=== PATIENT | female | born 1935 | race Asian ===

== ENCOUNTER 2019-08-15 23:47 | Inpatient (IN) | payer OTHER ==
[~2019-08-15] VITALS: Ht 157.5 cm; Wt 51.7 kg
[2019-08-16] VITALS (9 sets, daily range): BP systolic 112–130; BP diastolic 48–58
[2019-08-16] MEDS ORDERED: MORPHINE SULFATE INJ 2 MG/ML DISP.SYRIN IV PRN (03:30)
[2019-08-16] MEDS ORDERED: Z GUARD REMEDY 2 OZ OINT TP PRN (03:30)
[2019-08-16] MEDS ORDERED: MAG HYDROX/AL HYDROX/SIMETH 30 ML UDC PO PRN (03:30)
[2019-08-16] MEDS ORDERED: ACETAMINOPHEN 325 MG TABLET PO PRN (03:30)
[2019-08-16] MEDS ORDERED: MAGNESIUM HYDROXIDE 30 ML UDC PO PRN (03:30)
[2019-08-16] MEDS ORDERED: ONDANSETRON HCL/PF 4 MG/2 ML VIAL IVP PRN (03:30)
[2019-08-16] MEDS ORDERED: HYDROCODONE/APAP 5/325MG 1 EACH TABLET PO PRN (03:30)
--- NOTE | 2019-08-16 03:40 | NUR ---
RN NOTES RECEIVED PATIENT. DIRECT ADMIT FROM [facility],TRANSPORTED BY [facility]. PATIENT IS URUGUAYAN SPEAKING. ABLE TO MAKE NEEDS KNOWN. ALERT ORIENTED X4. ABLE TO OBTAIN PREVIOUS MEDICAL HISTORY RECORDS FROM [facility] ED SUMMARY REPORT. SON WAS AT BEDSIDE WHEN OBTAINING REPORTS FROM [facility]. PATIENT HAD MECHANICAL GROUND LEVEL FALL WHILE TRYING TO USE A NEW WALKER. PATIENT COMPLAINED OF RIGHT HIP PAIN. MD MADE AWARE. AWAITING FOR ADMITTING ORDERS. NO APPARENT SIGNS OF ACUTE RESPIRATORY DISTRESS NOTED, BREATHING EVEN AND UNLABORED, NOTED WITH SLIGHT FACIAL GRIMACING UPON CHANGING POSITION. PATIENT IS PLEASANT AND COOPERATIVE. HEAD TO TOE ASSESSMENT DONE. NOTED WITH SLIGHT SWELLING ON HER RIGHT CHEEK. IV ACCESS ON HER LEFT FOREARM G#22 CLEAN DRY, INTACT AND PATENT. ALL NEEDS ANTICIPATED. KEPT CLEAN DRY AND COMFORTABLE, ORIENTED TO ROOM AND THE USE OF CALL LIGHT. REPOSITIONED FOR COMFORT. WILL CONTINUE TO MONITOR ACCORDINGLY.
[2019-08-16] MEDS ORDERED: MECL12.582 PO (03:46)
[2019-08-16] MEDS ORDERED: RANI-655 PO (03:46)
[2019-08-16] MEDS ORDERED: INSU100I26 SQ (03:46)
[2019-08-16] MEDS ORDERED: ACET-2605 PO (03:46)
[2019-08-16] MEDS ORDERED: ASPI-1152 PO (03:46)
[2019-08-16] MEDS ORDERED: CALC1TAB91 PO (03:46)
[2019-08-16] MEDS ORDERED: DOCU-141 PO (03:46)
[2019-08-16] MEDS ORDERED: ERGO50CA PO (03:46)
[2019-08-16] MEDS ORDERED: GABA300C PO (03:46)
[2019-08-16] MEDS ORDERED: AMLO5TAB4 PO (03:46)
[2019-08-16] MEDS ORDERED: MECLIZINE HCL 12.5 MG TABLET PO PRN (04:00)
[2019-08-16] MEDS ORDERED: DOCUSATE SODIUM 100 MG CAPSULE PO PRN (04:00)
[2019-08-16] MEDS ORDERED: DEXTROSE 50%-WATER 50 ML DISP.SYRIN IV PRN (04:00)
[2019-08-16] MEDS: IV D5/0.45 NACL 1,000 ML IV PRN ×2 (04:18→21:42)
[2019-08-16 06:29] LABS: BASOPHILS % (AUTO) 0.2 % (0.0-2.0); EOSINOPHILS % (AUTO) 0.1 % (0.0-6.0); HEMATOCRIT 30 % (33-45); LYMPHOCYTES # (AUTO) 1.7 /CMM (0.8-4.8); LYMPHOCYTES % (AUTO) 23.7 % (20.0-44.0); MEAN CORPUSCULAR HGB CONC 34 g/dl (31.0-36.0); MEAN CORPUSCULAR VOLUME 92 fL (82-100); MONOCYTES # (AUTO) 0.6 /CMM (0.1-1.30); MONOCYTES % (AUTO) 8.8 % (2.0-12.0); NEUTROPHILS # (AUTO) 4.8 /CMM (1.8-8.9); NEUTROPHILS % (AUTO) 67.2 % (43.0-81.0); PLATELET COUNT (AUTO) 159 /CMM (150-450); RED BLOOD CELL COUNT(AUTO) 3.24 MIL/uL (4.0-5.2); WHITE BLOOD COUNT (AUTO) 7.1 K/uL (4.3-11.0)
[2019-08-16 06:40] LABS: ALBUMIN 3.2 g/dL (3.4-5.0); BILIRUBIN,DIRECT 0.1 mg/dL (0.0-0.2); BILIRUBIN,TOTAL 0.3 mg/dL (0.2-1.0); CALCIUM, SERUM 8.9 mg/dL (8.5-10.1); CREATININE 1.1 mg/dL (0.6-1.3); MAGNESIUM 1.9 mg/dL (1.8-2.4); PHOSPHORUS 3.2 mg/dL (2.5-4.9); POTASSIUM 4.9 mmol/L (3.5-5.1); TOTAL PROTEIN, SERUM 6.6 g/dL (6.4-8.2)
[2019-08-16] MEDS: BLOOD SUGAR DIAGNOSTIC 1 EACH STRIP IN SCH ×4 (06:51→21:22)
[2019-08-16 06:54] LABS: APPEARANCE,URINE CLEAR (CLEAR); BILIRUBIN,URINE NEGATIVE (NEGATIVE); BLOOD, URINE NEGATIVE Ery/uL (NEGATIVE); COLOR,URINE YELLOW (YELLOW); KETONES,URINE NEGATIVE (NEGATIVE); LEUKOCYTE ESTERASE ,URINE NEGATIVE (NEGATIVE); NITRITE, URINE NEGATIVE (NEGATIVE); PH,URINE 5.5 (5.0-8.0); PROTEIN,URINE NEGATIVE (NEGATIVE); UGLUCOSE >=1000 mg/dL (NEGATIVE); UROBILINOGEN,URINE 0.2 EU/dL (0.2)
[2019-08-16] MEDS: INSULIN REGULAR, HUMAN 100 UNIT/ML 3 ML VIAL SQ PRN ×2 (06:58→21:26)
[2019-08-16 07:24] LABS: THYROID STIMULATING HORMONE 0.883 uIU/mL (0.358-3.74)
--- NOTE | 2019-08-16 07:31 | NUR ---
RN NOTES ALL NEEDS ATTENDED AND MET, ABLE TO REST, SAFETY MEASURES IN PLACE, BLOOD GLUCOSE CHECKED 297 MG/DL. UNITS OF INSULIN GIVEN PER MD ORDERED. CRITICAL LAB GLUCOSE RESULT IS 362MG/DL PER SANDRA. ASPIRATION PRECAUTION EMPHASIZED. NPO MAINTAINED. ENDORSED TO AM NURSE FOR CONTINUITY OF CARE.
[2019-08-16 07:32] LABS: CHOLESTEROL 135 mg/dL (<200); HDL CHOLESTEROL 55 mg/dL (40-60); LDL 67 mg/dL (0-99); TRIGLYCERIDES 64 mg/dL (30-150)
[2019-08-16 08:20] LABS: BACTERIA,URINE None seen /HPF (None Seen); RBC,URINE NONE SEEN /HPF (0-2); SQUAMOUS EPITHELIAL CELL,UR Few /HPF (None Seen); WBC,URINE 0-2 /HPF (0-3)
[2019-08-16] MEDS: GABAPENTIN 300 MG CAPSULE PO SCH ×3 (08:28→17:00)
[2019-08-16] MEDS: LOSARTAN POTASSIUM 50 MG TABLET PO SCH (08:29)
[2019-08-16] MEDS: CALCIUM CARB 600MG /VIT D 1 EACH TABLET PO SCH ×2 (08:29→17:00)
[2019-08-16] MEDS: PANTOPRAZOLE 40 MG TABLET.DR PO SCH (08:29)
[2019-08-16] MEDS: AMLODIPINE BESYLATE 5 MG TABLET PO SCH (08:30)
[2019-08-16] MEDS ORDERED: FAMOTIDINE (20 MG) 20 MG TABLET PO PRN (09:00)
[2019-08-16] MEDS ORDERED: BUPIVACAINE 0.5 % PF 150 MG/30 ML VIAL ONE (16:39)
[2019-08-16] MEDS ORDERED: BACITRACIN 50000 UNITS/VIAL ONE (16:40)
[2019-08-16] MEDS ORDERED: HYDROMORPHONE 1 MG/1 ML DISP.SYRIN ONE (16:47)
[2019-08-16] MEDS ORDERED: FENTANYL PF 100MCG/2ML AMPUL ONE (16:55)
--- NOTE | 2019-08-16 19:00 | NUR ---
RN MS OPENING NOTES RECEIVED PATIENT IN BED AWAKE ALERT AND VERBALLY RESPONSIVE, ALERT X3-4, RESPIRATIONS EVEN AND UNLABORED WITH EQUAL RISE AND FALL OF CHEST, S/P SURGERY TO RIGHT HIP WITH DRESSING CLEAN DRY AND INTACT. IV SITE TO LEFT FA #22 G INTACT AND PATENT, NO REDNESS NO INFILTRATION PRESENT, IVF RUNNING ORDERED, SP02 WNL 94-96%ON ROOM AIR NO DISTRESS PRESENT, VS REMAIN WNL AT THIS TIME, SCOTT CATHETER INTACT AND PROPERLY DRAINING, WITH PROPER ALIGNMENT, SAFETY PRECAUTIONS IN PLACE, LOW BED AND LOCKED BED ALARM IN PLACE , NO FACIAL GRIMACING PRESENT AT THIS TIME , ICE BAG TO RIGHT HIP IN PLACE, ORIENTED TO STAFF AND CALL LIGHT AND KEPT WITHIN REACH, WILL CONTINUE TO MONITOR VS AND ATTEND TO NEEDS, REMAINS COMFORTABLE AT THIS TIME, ORDERS KS MD DR. VALENZUELA NOTED AND CARRIED OUT.
[2019-08-16] MEDS ORDERED: INSULIN GLARGINE, 100 UNIT/ML CARTRIDGE SQ SCH (22:00)
[2019-08-17] VITALS (7 sets, daily range): BP systolic 99–158; BP diastolic 35–57
[2019-08-17] MEDS: ANCEF 1 GM/50 ML D5W IV SCH ×6 (01:01→18:26)
[2019-08-17] MEDS: INSULIN REGULAR, HUMAN 100 UNIT/ML 3 ML VIAL SQ PRN ×4 (06:06→21:22)
[2019-08-17] MEDS: BLOOD SUGAR DIAGNOSTIC 1 EACH STRIP IN SCH ×4 (06:24→21:17)
--- NOTE | 2019-08-17 06:25 | NUR ---
RN MS CLOSING NOTES PATIENT IN BED AWAKE ALERT AND VERBALLY RESPONSIVE, ALERT ABLE TO POINT TO NEEDS, RESPIRATIONS EVEN AND UNLABORED WITH EQUAL RISE AND FALL OF CHEST, S/P SURGERY TO RIGHT HIP WITH DRESSING CLEAN DRY AND INTACT. IV SITE TO LEFT FA #22 G INTACT AND PATENT, NO REDNESS NO INFILTRATION PRESENT, IVF RUNNING ORDERED, VS S/P SURGERY WNL, 94-96%ON ROOM AIR NO DISTRESS PRESENT, SCOTT CATHETER INTACT AND PROPERLY DRAINING 350CC CLEAR YELLOW OUTPUT , WITH PROPER ALIGNMENT, SAFETY PRECAUTIONS IN PLACE, LOW BED AND LOCKED BED ALARM IN PLACE , NO FACIAL GRIMACING PRESENT AT THIS TIME , CALL LIGHT KEPT WITHIN REACH, TOLERATED REPOSITIONING WELL, SKIN ASSESSMENT DONE NO REDNESS TO SACRAL OR HEELS INTACT, CLEAR, OFFERED FLUIDS TOLERATED WELL, TOLERATED SUGAR FREE APPLESAUCE WELL AND WATER PROVIDED, WILL CONTINUE TO ATTEND TO NEEDS, REMAINS COMFORTABLE AT THIS TIME AND ENDORSE TO NEXT SHIFT, MEDICATIONS ORDERED GIVEN WITH NO ADVERSE REACTIONS.
[2019-08-17 07:30] LABS: BASOPHILS % (AUTO) 0.1 % (0.0-2.0); EOSINOPHILS % (AUTO) 0.1 % (0.0-6.0); HEMATOCRIT 23 % (33-45); HEMOGLOBIN 7.7 g/dL (11.5-14.8); LYMPHOCYTES % (AUTO) 20.6 % (20.0-44.0); MEAN CORPUSCULAR HGB CONC 34 g/dl (31.0-36.0); MEAN CORPUSCULAR VOLUME 92 fL (82-100); MONOCYTES # (AUTO) 0.8 /CMM (0.1-1.30); MONOCYTES % (AUTO) 8.3 % (2.0-12.0); NEUTROPHILS # (AUTO) 6.9 /CMM (1.8-8.9); NEUTROPHILS % (AUTO) 70.9 % (43.0-81.0); PLATELET COUNT (AUTO) 134 /CMM (150-450); RED BLOOD CELL COUNT(AUTO) 2.49 MIL/uL (4.0-5.2); WHITE BLOOD COUNT (AUTO) 9.7 K/uL (4.3-11.0)
[2019-08-17 07:41] LABS: CALCIUM, SERUM 7.9 mg/dL (8.5-10.1); CREATININE 0.9 mg/dL (0.6-1.3); MAGNESIUM 1.8 mg/dL (1.8-2.4); PHOSPHORUS 2.1 mg/dL (2.5-4.9); POTASSIUM 4.4 mmol/L (3.5-5.1)
--- NOTE | 2019-08-17 08:00 | NUR ---
RN MS AM NOTES RECEIVED PATIENT IN BED AWAKE ALERT AND VERBALLY RESPONSIVE, ALERT X 2 AND IS HARD OF HEARING EVEN WITH RIGHT HEARING AID IN PLACE, RESPIRATIONS EVEN AND UNLABORED WITH EQUAL RISE AND FALL OF CHEST, S/P SURGERY TO RIGHT HIP INTRAMEDULLARY RODDING ON 08/16/[address] VALENZUELA. DRESSING CLEAN DRY AND INTACT. IV SITE TO LEFT FA #22 G INTACT AND PATENT, NO REDNESS NO INFILTRATION PRESENT, IVF D51/2 NS INFUSING WELL AT 75ML. PATIENT ATTEMPTED TO PULL OUT IV SEVERAL TIMES AND TRIED TO REMOVE THE PROTECTIVE DRESSING COVERING THE IV LINE. CALLED DAUGHTER, SANDI, AND ASKED CONSENT FOR SOFT WRIST RESTRAINTS WHICH DAUGHTER AGREED TO. NOTIFIED MD WITH ORDERS FOR RESTRAINTS AND CARRIED OUT. NO SOB ON ROOM AIR AND NO DISTRESS NOTED. SCOTT CATHETER INTACT AND PROPERLY DRAINING WITH CLEAR/YELLOW URINE WITH MODERATE OUTPUT. SAFETY PRECAUTIONS IN PLACE, LOW BED AND LOCKED BED ALARM IN PLACE , NO FACIAL GRIMACING PRESENT AT THIS TIME, CALL LIGHT AND KEPT WITHIN REACH, WILL CONTINUE TO MONITOR.
[2019-08-17] MEDS: PANTOPRAZOLE 40 MG TABLET.DR PO SCH (08:15)
[2019-08-17] MEDS: CHOLECALCIFEROL 1,000 UNIT TABLET (VIT D3) PO SCH (09:20)
[2019-08-17] MEDS: LOSARTAN POTASSIUM 50 MG TABLET PO SCH (09:21)
[2019-08-17] MEDS: NEUTRA PHOS 1 POWD.PACKET PO SCH ×2 (09:21→17:26)
[2019-08-17] MEDS: GABAPENTIN 300 MG CAPSULE PO SCH ×3 (09:21→17:26)
[2019-08-17] MEDS: CALCIUM CARB 600MG /VIT D 1 EACH TABLET PO SCH ×2 (09:22→17:26)
[2019-08-17] MEDS: AMLODIPINE BESYLATE 5 MG TABLET PO SCH (09:22)
[2019-08-17 09:26] LABS: IRON, SERUM 23 ug/dl (50-175); TOTAL IRON BINDING CAPACITY 195 ug/dl (250-450)
[2019-08-17 09:40] LABS: FERRITIN 150 ng/mL (8-388)
[2019-08-17] MEDS: IV 1/2NS 1000 ML 1,000 ML IV PRN (10:03)
--- NOTE | 2019-08-17 15:30 | NUR ---
TRANSFUSED FIRST UNIT PRBC WITH STABLE V/S.BP 119/40 HR 90 RR 20 T 99.PT SLEEPING COMFORTABLY BUT AROUSABLE.DENIES ANY PAIN OR DISTRESS.WILL MONITOR V/S AND ADVERSE REACTIONS FROM THE BLOOD.
--- NOTE | 2019-08-17 15:45 | NUR ---
With ongoing blood transfusion of first unit PRBC with no adverse reactions noted.With stable V/S. BP 99/35 HR 88 rr 18 T 99.PA 0/10.Pt continues to rest comfortably denying any pain or distress.Will continue to monitor. Call light placed within reach.
--- NOTE | 2019-08-17 16:25 | NUR ---
MS RN NOTES UNABLE TO ADMINISTERED SCHEDULED ANCEF DUE TO ONGOING BLOOD TRANSFUSION.
--- NOTE | 2019-08-17 18:21 | NUR ---
COMPLETED TRANSFUSING FIRST UNIT PRBC WITH NO ADVERSE REACTIONS NOTED.WITH STABLE V/S.PT REFUSED TO DRINK FLUIDS AND EAT DINNER .ATE MIR CRACKERS INSTEAD.
--- NOTE | 2019-08-17 19:00 | NUR ---
RN brady opening notes Received Pt from morning nurse. Pt is resting in bed comfortably. Pt is alert and orientedX2. Pt speaks Mandarin and able to make needs known. Respiration is normal. No SOB. No nausea or vomiting. Pt denies any pain or discomfort at this time. Per AM nurse Pt had 1 unit of PRBC. Bilateral soft wrist restraint is in placed and removed to check for circulation. Skin is warm to touch. Offred oral fluids. Pt tolerated well. Turning and repositioning Q 2hr. Lopez cath is intact, patent and draining clear yellow urine. IV sites at LFA # 22 is clean, intact and patent and infusing well 0.45 NS @ 75 ml/hr. Safety precautions is maintained. Instructed to call. Bed at low position, brakes locked, side rails upX3 and call light is within reach. Will continue to monitor.
--- NOTE | 2019-08-17 19:00 | NUR ---
MS RN NOTES: PATIENT RESTING IN BED; SOFT WRIST RESTRAINTS ON BOTH HANDS IN PLACE; ATTEMPTING TO REMOVE IV LINE WHEN RESTRAINTS ARE RELEASED TO CHECK CIRCULATION IN BOTH HANDS; BED SET IN LOW POSITION AND BED ALARM IS ON; CALL LIGHT WITHIN REACH.
[2019-08-17] MEDS ORDERED: INSULIN GLARGINE, 100 UNIT/ML CARTRIDGE SQ SCH (22:00)
[2019-08-18] MEDS: IV 1/2NS 1000 ML 1,000 ML IV PRN (03:02)
[2019-08-18 06:23] LABS: BASOPHILS % (AUTO) 0.2 % (0.0-2.0); EOSINOPHILS % (AUTO) 0.2 % (0.0-6.0); HEMATOCRIT 26 % (33-45); LYMPHOCYTES # (AUTO) 2.5 /CMM (0.8-4.8); LYMPHOCYTES % (AUTO) 20.6 % (20.0-44.0); MEAN CORPUSCULAR HGB CONC 34 g/dl (31.0-36.0); MEAN CORPUSCULAR VOLUME 89 fL (82-100); MONOCYTES # (AUTO) 1.3 /CMM (0.1-1.30); MONOCYTES % (AUTO) 10.3 % (2.0-12.0); NEUTROPHILS # (AUTO) 8.4 /CMM (1.8-8.9); NEUTROPHILS % (AUTO) 68.7 % (43.0-81.0); PLATELET COUNT (AUTO) 121 /CMM (150-450); RED BLOOD CELL COUNT(AUTO) 2.95 MIL/uL (4.0-5.2); WHITE BLOOD COUNT (AUTO) 12.3 K/uL (4.3-11.0)
[2019-08-18] MEDS: BLOOD SUGAR DIAGNOSTIC 1 EACH STRIP IN SCH ×3 (06:32→16:58)
[2019-08-18] MEDS: INSULIN REGULAR, HUMAN 100 UNIT/ML 3 ML VIAL SQ PRN ×2 (06:35→13:22)
[2019-08-18 06:39] LABS: ALBUMIN 2.5 g/dL (3.4-5.0); BILIRUBIN,TOTAL 0.8 mg/dL (0.2-1.0); CALCIUM, SERUM 7.8 mg/dL (8.5-10.1); CREATININE 0.7 mg/dL (0.6-1.3); MAGNESIUM 1.8 mg/dL (1.8-2.4); PHOSPHORUS 1.8 mg/dL (2.5-4.9); POTASSIUM 3.6 mmol/L (3.5-5.1); TOTAL PROTEIN, SERUM 5.9 g/dL (6.4-8.2)
--- NOTE | 2019-08-18 06:45 | NUR ---
RN medsurg closing notes Pt is resting in bed comfortably. Pt speaks Mandarin but able to make needs known. Respiration is normal. NO SOB. No nausea or vomiting. No S/S of distress noted. IV sites at L hand # 22 is clean, intact, patent and infusing well 0.45%NS @ 75 ml/hr. VS is stable. Routine meds were given as ordered. Lopez cath is intact, patent and draining clear yellow urine 500 ml. Bilateral wrist restraints is in placed. Release to checked circulation. Pt skin is warm to touch. Offered fuids and snacks. Kept Pt clean, dry and comfortable. All needs met and attended. Instructed to call. Safety precautions is maintained. Bed at low position, brakes locked, side rails upX3 and call light is within reach. Will endorse to morning nurse for KISHAN
--- NOTE | 2019-08-18 08:00 | NUR ---
RN MS AM NOTES RECEIVED PATIENT IN BED AWAKE ALERT AND VERBALLY RESPONSIVE, ALERT X 2 AND IS HARD OF HEARING EVEN WITH RIGHT HEARING AID IN PLACE, RESPIRATIONS EVEN AND UNLABORED WITH EQUAL RISE AND FALL OF CHEST, S/P SURGERY TO RIGHT HIP INTRAMEDULLARY RODDING ON 08/16/[address] VALENZUELA. DRESSING CLEAN DRY AND INTACT. IV SITE TO LEFT FA #22 G INTACT AND PATENT, NO REDNESS NO INFILTRATION PRESENT, IVF D51/2 NS INFUSING WELL AT 75ML.NO SOB ON ROOM AIR AND NO DISTRESS NOTED. SCOTT CATHETER INTACT AND PROPERLY DRAINING WITH CLEAR/YELLOW URINE WITH MODERATE OUTPUT. SAFETY PRECAUTIONS IN PLACE, LOW BED AND LOCKED BED ALARM IN PLACE , NO FACIAL GRIMACING PRESENT AT THIS TIME, CALL LIGHT AND KEPT WITHIN REACH, WILL CONTINUE TO MONITOR.
[2019-08-18 08:43] VITALS: BP 125/74
[2019-08-18] MEDS: GABAPENTIN 300 MG CAPSULE PO SCH ×3 (09:49→16:58)
[2019-08-18] MEDS: CHOLECALCIFEROL 1,000 UNIT TABLET (VIT D3) PO SCH (09:49)
[2019-08-18] MEDS: CALCIUM CARB 600MG /VIT D 1 EACH TABLET PO SCH ×2 (09:49→16:57)
[2019-08-18 09:50] VITALS: BP 125/52
[2019-08-18] MEDS: AMLODIPINE BESYLATE 5 MG TABLET PO SCH (09:50)
[2019-08-18] MEDS: LOSARTAN POTASSIUM 50 MG TABLET PO SCH (09:50)
[2019-08-18] MEDS: PANTOPRAZOLE 40 MG TABLET.DR PO SCH (09:53)
[2019-08-18] MEDS ORDERED: K PHOS NEUTRAL 250 MG TABLET PO ONE (11:00)
[2019-08-18] MEDS ORDERED: RIVA10TA PO (14:18)
[2019-08-18] MEDS ORDERED: PANT40TA2 PO (14:18)
[2019-08-18] MEDS ORDERED: LOSA50TA3 PO (14:18)
--- NOTE | 2019-08-18 17:25 | NUR ---
DISCHARGED PT HOME WITH [facility] VIA AMBULANCE WITH STABLE V/S.BS 272 PRIOR TO DC.PT ATE 70% DINNER -WITH FEEDER.DENIES ANY PAIN OR DISTRESS.RT HIP SURGICAL DRESSINGS CHANGED WITH STAPLE INTACT WITH NO S/S OF DRAINAGE/INFECTION.IV H/L REMOVED TO LT HAND WITH NO BLEEDING NOTED.REMOVED SCOTT CATHETER -PT TOLERATED WELL. PT'S DTR,LI AWARE OF THE DISCHARGE.
== END 2019-08-18 17:25 | disposition home health service (06) | DRG 308 ==
LOC: MED 08-16 02:58
PROVIDERS: ADMIT Nurse Practitioner Acute Care; ATTEND Nurse Practitioner Acute Care
PROC: 0QH806Z Insertion of Intramedullary Internal Fixation Device into Right Femoral Shaft, Open Approach (ICD-10-PCS; principal; 2019-08-16)
PROC: 30283B1 Transfusion of Nonautologous 4-Factor Prothrombin Complex Concentrate into Vein, Percutaneous Approach (ICD-10-PCS; 2019-08-17)
DX: S72.141A Displaced intertrochanteric fracture of right femur, initial encounter for closed fracture (principal); E46 Unspecified protein-calorie malnutrition; D69.6 Thrombocytopenia, unspecified; E11.42 Type 2 diabetes mellitus with diabetic polyneuropathy; E83.39 Other disorders of phosphorus metabolism; E83.51 Hypocalcemia; I35.1 Nonrheumatic aortic (valve) insufficiency; I10 Essential (primary) hypertension; X58.XXXA Exposure to other specified factors, initial encounter; Y92.9 Unspecified place or not applicable; Z86.73 Personal history of transient ischemic attack (TIA), and cerebral infarction without residual deficits; K44.9 Diaphragmatic hernia without obstruction or gangrene; H91.92 Unspecified hearing loss, left ear; G89.29 Other chronic pain; K59.00 Constipation, unspecified; K21.9 Gastro-esophageal reflux disease without esophagitis; D50.9 Iron deficiency anemia, unspecified; Z79.01 Long term (current) use of anticoagulants; I70.0 Atherosclerosis of aorta; Z98.890 Other specified postprocedural states; Z79.82 Long term (current) use of aspirin; Z79.4 Long term (current) use of insulin; Z79.899 Other long term (current) drug therapy; R42 Dizziness and giddiness; D72.829 Elevated white blood cell count, unspecified; M21.151 Varus deformity, not elsewhere classified, right hip; W07.XXXA Fall from chair, initial encounter
CPT/HCPCS: 36415; 71045-TC; 73501; 73502; 80048-TC; 80053-TC; 80061-TC; 80076-TC; 81000-TC; 82728-TC; 82962-TC; 83540-TC; 83735-TC; 84100-TC; 84443-TC; 85025-TC; 85610-TC; 86850-TC; 86921-TC; 87081-TC; 93307-TC; 97110-TC; 97112-TC; 97530-TC; G0378; J0690; J1170; J1815; J2704; J3010; J3490; J7050; J7060; P9016-BL